=== PATIENT | female | born 1990 | race Caucasian/White ===

== ENCOUNTER 2017-03-28 01:14 | Emergency (ER) | payer OTHER ==
[~2017-03-28] VITALS: Ht 152.4 cm; Wt 84.0 kg
[2017-03-28 01:34] VITALS: BP 118/73; Ht 152.4 cm; Wt 84.0 kg
== END 2017-03-28 04:24 | disposition left against medical advice (07) ==
LOC: ED 01:14
DX: Z53.21 Procedure and treatment not carried out due to patient leaving prior to being seen by health care provider (principal)

== ENCOUNTER 2017-04-18 08:33 | Emergency (ER) | payer OTHER ==
[~2017-04-18] VITALS: Ht 152.4 cm; Wt 82.1 kg
[2017-04-18 08:39] VITALS: Ht 152.4 cm; Wt 82.1 kg
[2017-04-18 09:48] VITALS: BP 125/78
== END 2017-04-18 09:48 | disposition home or self-care (01) ==
LOC: ED 08:33
DX: H60.501 Unspecified acute noninfective otitis externa, right ear (principal)

== ENCOUNTER 2018-11-09 16:41 | Emergency (ER) | payer OTHER ==
[~2018-11-09] VITALS: Ht 152.4 cm; Wt 81.4 kg
[2018-11-09 16:51] VITALS: Ht 152.4 cm; Wt 81.4 kg
[2018-11-09 17:23] LABS: BASOPHIL % 0.3 % (0-2); PLATELET COUNT 302 x10^3mcL (130-400); RED CELL DISTRIBUTION WIDTH 13.9 % (11.5-14.5)
[2018-11-09 17:32] LABS: CALCIUM 8.6 mg/dL (8.5-10.1); CARBON DIOXIDE 26.2 mmol/L (21-32); CHLORIDE SERUM 105 mmol/L (98-107); CREATININE SERUM 0.7 mg/dL (0.6-1.0); GFR1 > 60 mL/min; GLUCOSE SERUM 89 mg/dL (74-106); POTASSIUM SERUM 3.3 mmol/L (3.5-5.1); SODIUM SERUM 140 mmol/L (136-145)
[2018-11-09 17:36] LABS: ALBUMIN 3.6 g/dL (3.4-5.0); ALKALINE PHOSPHATASE 52 U/L (46-116); ALT/SGPT 23 U/L (14-59); AST/SGOT 11 U/L (15-37); BILIRUBIN TOTAL 0.26 mg/dL (0.20-1.00); TOTAL PROTEIN, SERUM 7.2 g/dL (6.4-8.2)
[2018-11-09 18:42] LABS: AMPHETAMINE QUAL UR NONE DETECTED (See below)
[2018-11-09 19:35] VITALS: BP 112/67
== END 2018-11-09 19:35 | disposition home or self-care (01) ==
LOC: ED 16:41
PROVIDERS: Emergency Medicine
DX: R55 Syncope and collapse (principal); R07.89 Other chest pain
CPT/HCPCS: 36415; 85378